=== PATIENT | male | born 1995 | race African-American/Black ===

== ENCOUNTER 2021-11-18 14:32 | Emergency (ER) | payer SELFPAY ==
[~2021-11-18] VITALS: Ht 172.7 cm; Wt 81.6 kg
--- NOTE | 2021-11-18 15:00 | NUR ---
Patient ambulatory, alert and oriented x4 with complaints of asthma attack this morning and pt runs out of inhaler at home. Patient not in ditsress.
--- NOTE | 2021-11-18 15:10 | NUR ---
MD at bedside, medical screeening exam in process.
--- NOTE | 2021-11-18 15:14 | NUR ---
called respiratory treatment.
[2021-11-18] MEDS ORDERED: ALBUTEROL SULFATE 2.5 MG/3 ML NEBU NEB ONE ×3 (15:15→16:45)
[2021-11-18] MEDS ORDERED: ALBUTEROL SULFATE 2.5 MG/3 ML NEBU ONE ×3 (15:17→16:42)
--- NOTE | 2021-11-18 15:20 | NUR ---
Ausculated patient, wheezing noted upon inhalation.
[2021-11-18] MEDS ORDERED: predniSONE 10 MG TABLET ONE (15:41)
[2021-11-18] MEDS ORDERED: predniSONE 10 MG TABLET PO ONE (15:45)
[2021-11-18] MEDS ORDERED: IPRATROPIUM BROMIDE 0.5 MG/2.5 ML NEBU ONE (16:43)
[2021-11-18] MEDS ORDERED: IPRATROPIUM BROMIDE 0.5 MG/2.5 ML NEBU NEB ONE (16:45)
--- NOTE | 2021-11-18 18:09 | NUR ---
Patient feels much better, pending discharge papers@this time
--- NOTE | 2021-11-18 18:10 | NUR ---
Patient discharged to home in stable condition. Written and verbal after care instructions given. Patient verbalizes understanding of instructions. Stressed follow up or return to ER for worsening s/s.
[2021-11-18] MEDS ORDERED: ALBU8.5H8 INH (18:14)
[2021-11-18] MEDS ORDERED: PRED20TA PO (18:14)
[2021-11-18 18:27] VITALS: BP 121/80
== END 2021-11-18 18:15 | disposition home or self-care (01) ==
LOC: ER 14:32
DX: J45.901 Unspecified asthma with (acute) exacerbation (principal); J20.8 Acute bronchitis due to other specified organisms; Z82.49 Family history of ischemic heart disease and other diseases of the circulatory system; Z91.018 Allergy to other foods; Z91.013 Allergy to seafood
CPT/HCPCS: 94644; 94645; 99285; J7512; A4663; J3590